=== PATIENT | male | born 1995 | race Caucasian/White ===

== ENCOUNTER 2020-11-11 20:53 | Emergency (ER) | payer SELFPAY ==
--- NOTE | ~2020-11-11 | XR_ITS ---
EXAMINATION: XR foot LT min 3V DATE: 11/11/2020 21:36 INDICATION: Left foot injury. TECHNIQUE: 4 views of left foot were obtained. COMPARISON: None. FINDINGS: Bone alignment is normal. No fracture. There is mild osteoarthritis of first metatarsophala ngeal joint. There is an enthesophyte at posterior aspect of calcaneal tuberosity. IMPRESSION: 1. Mild osteoarthritis of first metatarsophalangeal joint. Reviewed, dictated and finalized at location A.
[2020-11-11 21:19] VITALS: BP 147/85; PULSE 92; RESP 16; TEMP 37.6; O2SAT 100
--- NOTE | 2020-11-11 23:09 | ED.GENADULT ---
HPI - General Adult General Chief complaint: Extremity Injury, Lower Stated complaint: foot injury Time Seen by Provider: 11/11/20 22:50 Source: patient History of Present Illness HPI narrative: Patient is a 25 y/o male complaining of sharp left foot pain. He states that he stepped on a nail through his shoe around 10:00 AM this morning. He rates his pain as 8/10. Weight bearing makes the pain worse. There is no pain radiation. He noticed some bruise and redness on top of left foot. Related Data Allergies Allergy/AdvReac Type Severity Reaction Status Date / Time No Known Allergies Allergy Verified 11/11/20 22:51 Review of Systems Constitutional: Constitutional: Denies chills, Denies fever(s), Denies headache(s) and Denies weakness Eyes: Eyes: Denies blurry vision ENT: Denies headache(s) and Denies neck pain Cardiovascular: Cardiovascular: Denies chest pain and Denies dyspnea Respiratory: Respiratory: Denies cough and Denies dyspnea Gastrointestinal: Gastrointestinal: Denies abdominal pain, Denies diarrhea, Denies nausea and Denies vomiting Genitourinary: Genitourinary: Denies hematuria and Denies dysuria Musculoskeletal: Musculoskeletal: Reports as per HPI, Denies back pain, Denies neck pain and Reports other (left foot pain) Integumentary/Breasts: Skin/Breast: Reports erythema (left foot) Neurologic: Denies headache(s) and Denies weakness [facility] Social History Social History Gender identity (if verbalized by the patient): Male Exam Const: General: no acute distress and well developed Orientation/consciousness: oriented to person, oriented to place, oriented to time and patient oriented x3 HENMT: Head: normocephalic Ears: external ears normal General nose exam: Normal external nose present Eyes: General: appearance normal, both eyes and all related structures Conjunctivae: conjunctivae normal Neck: Neck: normal visual inspection and full ROM Chest: Chest palpation & inspection: normal inspection of the chest and no tenderness Resp: Effort & Inspection: normal respiratory effort Auscultation: clear to auscultation bilaterally Cardio: Rate: regular rate Rhythm: regular rhythm GI: GI Palp: No abdominal tenderness and Yes Soft to palpation Skin: General skin exam: normal color, turgor normal, ecchymosis (left foot) and erythema (left foot) Wounds: wounds noted (punture wound on plantar surface of left foot) Neuro: General: oriented to person, oriented to place, oriented to time and patient oriented x3 Cognition (Neuro): normal cognition Extrem: General: normal to inspection, full ROM and no pedal edema Psych: Appearance: grossly normal Mental Status: mental status grossly normal Affect: normal affect Course Reevaluation(s) Reevaluation #1: Rechecked. I advised patient to be admitted for observation and IV antibiotics. However, patient does not want to be admitted. He insists on being discharged. He is instructed to return if his symptoms worsen. Date: 11/12/20 Time: 01:12 Vital Signs Vital signs: Vital Signs Temperature 37.6 C H 11/11/20 21:19 Pulse Rate 92 11/11/20 21:19 Respiratory Rate 16 11/11/20 21:19 Blood Pressure 147/85 H 11/11/20 21:19 Pulse Oximetry 100 11/11/20 21:19 Temperature 37.6 C H 11/11/20 21:19 Pulse Rate 94 11/12/20 00:31 Respiratory Rate 18 11/12/20 00:31 Blood Pressure 142/66 H 11/12/20 00:31 Pulse Oximetry 98 11/12/20 00:31 Medical Decision Making Vital Signs Vital Signs: Vital Signs Temperature 37.6 C H 11/11/20 21:19 Pulse Rate 92 11/11/20 21:19 Respiratory Rate 16 11/11/20 21:19 Blood Pressure 147/85 H 11/11/20 21:19 Pulse Oximetry 100 11/11/20 21:19 Temperature 37.6 C H 11/11/20 21:19 Pulse Rate 94 11/12/20 00:31 Respiratory Rate 18 11/12/20 00:31 Blood Pressure 142/66 H 11/12/20 00:31 Pulse Oximetry 98 11/12/20 00:31 Lab Data Re
[2020-11-11] MEDS: ceFAZolin 2 GM/D5W 50 ML 2 GM/50 ML BAG IVPB (23:39)
[2020-11-11] MEDS: TETANUS,DIPHTHERIA,AC PERTUSSIS ADULT (0.5 ML) BOOSTRIX IM (23:40)
[2020-11-11 23:50] LABS: Basophils Absolute Auto 0.1 K/mm3 (0.0-0.1); Basophils Percent Auto 0.3 % (0.2-1.2); Eosinophils Absolute Auto 0.1 K/mm3 (0-0.3); Eosinophils Percent Auto 0.7 % (0-4.4); Hematocrit 42.5 % (42.0-52.0); Hemoglobin 14.1 g/dL (14.0-18.0); Immature Granulocyte Percent A 0.6 % (0-0.5); Lymphocytes Absolute Auto 3.21 K/mm3 (0.9-3.2); Lymphocytes Percent Auto 17.9 % (18.3-44.2); Mean Corpuscular HGB Conc 33.2 g/dl (32-36); Mean Corpuscular Hemoglobin 30.6 pg (26-34); Mean Corpuscular Volume 92.2 fl (80-100); Mean Platelet Volume 8.8 fl (7.4-10.4); Monocytes Absolute Auto 1.3 K/mm3 (0.1-0.6); Neutrophils Absolute Auto 13.2 K/mm3 (1.3-6.7); Neutrophils Percent Auto 73.5 % (45.5-73.1); Platelet Count Result 494 k/mm3 (150-375); Red Blood Count 4.61 M/mm3 (4.6-6.20)
[2020-11-12] LABS: Anion Gap 4 mmol/L (8-16); Blood Urea Nitrogen 13 mg/dL (9-20); Calcium 9.2 mg/dL (8.4-10.2); Carbon Dioxide 32 mmol/L (22-30); Chloride 106 mmol/L (98-107); Estimated CRCL calculation 146 ml/min; Estimated Glomerular Filt Rate > 60; Glucose 89 mg/dL (75-110); Potassium 3.8 mmol/L (3.4-5.0); Sodium 142 mmol/L (137-145)
[2020-11-12] MEDS: KETOROLAC 30 MG/ML VIAL (*BKC) IV PUSH (00:11)
[2020-11-12 00:31] VITALS: BP 142/66; PULSE 94; RESP 18; O2SAT 98
[2020-11-12 00:44] LABS: Lactic Acid Reflex 0.8 mmol/L (0.7-2.1)
[2020-11-12 01:05] LABS: Erythrocyte Sedimentation Rate 15 mm/hr (0-20)
[2020-11-12 01:45] VITALS: BP 149/83; PULSE 79; RESP 16; O2SAT 97
== END 2020-11-12 01:31 | disposition home or self-care (01) ==
PROVIDERS: Emergency Provider Emergency Medicine; PCP Emergency Medicine
DX: L03.116 Cellulitis of left lower limb (principal); S91.332A Puncture wound without foreign body, left foot, initial encounter; Z23 Encounter for immunization; W45.0XXA Nail entering through skin, initial encounter
CPT/HCPCS: 36415; 73630; 80048; 83605; 85025; 85652; 86140; 90471; 90715; 96365; 96375; 99284; J0690; J1885; J3370